=== PATIENT | female | born 1945 | race Caucasian/White ===

== ENCOUNTER 2016-08-22 10:47 | Outpatient (CLI) | payer OTHER | END 2016-08-22 10:50 | LOC: LAB 10:47 | PROVIDERS: ATTEND Family Medicine | DX: R73.9 Hyperglycemia, unspecified (principal) | CPT/HCPCS: 36415; 83036 ==

== ENCOUNTER 2016-08-31 09:38 | Outpatient (CLI) | payer OTHER | END 2016-08-31 09:40 | LOC: RAD 09:38 | PROVIDERS: ATTEND Family Medicine | DX: Z13.820 Encounter for screening for osteoporosis (principal) | CPT/HCPCS: 77080 ==

== ENCOUNTER 2016-11-16 09:57 | Outpatient (CLI) | payer OTHER ==
--- NOTE | 2016-11-17 06:55 | Diagnostic Imaging Report ---
HARLEY WISE~ [facility] [address] [address] [facility] [address] [address] ~ ~ ~ ~ Report Submission Date: Nov 16, 2016 11:38:01 AM CDT Patient ~ Study Name: VALENTIN CROCKER ~ Date: Nov 16, 2016 10:25:26 AM CDT ~ Modality Type: CR Gender: F ~ Description: PELVIS : 47 ~ Institution: [facility] Physician: HARLEY WISE ~ ~ ~ ~ Examination: Plain film hip History: Hip discomfort Comparison exams: None provided Findings: 2 views of the hip demonstrate normal cortical margins. No fracture no dislocation. Mild superior acetabular spurring. No soft tissue abnormality. Impression: Mild acetabular spurring. No acute osseous abnormality. ~ Electronically signed on Nov 16, 2016 11:38:01 AM CDT by: Tristan GUALLPA
== END 2016-11-16 10:00 ==
LOC: RAD 09:57
PROVIDERS: ATTEND Physician Assistant
DX: R10.31 Right lower quadrant pain (principal); R10.30 Lower abdominal pain, unspecified
CPT/HCPCS: 73502

== ENCOUNTER 2017-07-10 11:00 | Outpatient (CLI) | payer OTHER ==
--- NOTE | 2017-07-10 11:37 | Diagnostic Imaging Report ---
CHAPIN ROGERS [facility] [address] [facility] [address] [address] Report Submission Date: Jul 10, 2017 11:36:01 AM PAIN MANAGEMENT NURSE Patient Study Name: VALENTIN CROCKER Date: Jul 10, 2017 11:04:57 AM PAIN MANAGEMENT NURSE Modality Type: DX Gender: F Description: CHEST : 47 Institution: [facility] Physician: CHAPIN ROGERS Examination: PA and lateral chest. History: Evaluate lung villegas. COUGH (Hx) Comparison exam: None provided. Findings: PA lateral chest demonstrate a normal cardiac and mediastinal silhouette. Tortuous aorta. No focal infiltrate. No blunting of the costophrenic margins. Articular degenerative changes. Impression: No acute pulmonary process. Electronically signed on Jul 10, 2017 11:36:01 AM PAIN MANAGEMENT NURSE by: Tristan GUALLPA
== END 2017-07-10 11:02 ==
LOC: RAD 11:00
PROVIDERS: ATTEND Family Medicine
DX: R05 Cough (principal)
CPT/HCPCS: 71046

== ENCOUNTER 2017-07-26 08:24 | Outpatient (CLI) | payer OTHER ==
[2017-07-26 08:43] LABS: BASOPHILS % 0.8 (0.0-1.5); EOSINOPHILS % 3.2 % (0.0-6.8); MEAN CORPUSCULAR HEMOGLOBIN 29.2 pg (28.0-34.0); MEAN CORPUSCULAR VOLUME 88.3 fl (80.0-100.0); MONOCYTES % 3.9 % (0.0-11.0); NEUTROPHILS # 5.1 # k/uL (1.4-7.7)
[2017-07-26 09:07] LABS: eGFR (African) > 60; eGFR (Non-African) > 60
== END 2017-07-26 09:28 ==
LOC: LAB 08:24
PROVIDERS: ATTEND Family Medicine
DX: D64.9 Anemia, unspecified (principal); E53.8 Deficiency of other specified B group vitamins; I10 Essential (primary) hypertension
CPT/HCPCS: 36415; 80048; 82607; 85025

== ENCOUNTER 2017-09-25 15:37 | Outpatient (CLI) | payer OTHER | END 2017-09-25 15:40 | LOC: LABRHC 15:37 | PROVIDERS: ATTEND Family Medicine | DX: L72.3 Sebaceous cyst (principal) | CPT/HCPCS: 87070 ==

== ENCOUNTER 2018-05-01 16:35 | Outpatient (CLI) | payer OTHER ==
--- NOTE | 2018-05-01 17:04 | Diagnostic Imaging Report ---
CHAPIN ROGERS [facility] [address] [facility] [address] Report Submission Date: May 01, 2018 5:04:15 PM OUTSIDE CUTTER Patient Study Name: VALENTIN CROCKER Date: May 01, 2018 4:38:11 PM OUTSIDE CUTTER Modality Type: DX Gender: F Description: LOWER EXTREMITY : 47 Institution: [facility] Physician: CHAPIN ROGERS Right foot, three views History: Fall 2 weeks prior with foot pain. Findings: The osseous structures are intact without evidence of acute fracture. There is mild hallux valgus with mild degenerative change of the 1st metatarsophalangeal joint space. Plantar and dorsal calcaneal enthesophytes are present. Impression: 1. No acute osseous abnormality. 2. Mild hallux valgus. Electronically signed on May 01, 2018 5:04:15 PM OUTSIDE CUTTER by: Adolfo GUALLPA
== END 2018-05-01 16:36 ==
LOC: RAD 16:35
PROVIDERS: ATTEND Family Medicine
DX: M20.11 Hallux valgus (acquired), right foot (principal); M79.671 Pain in right foot
CPT/HCPCS: 73630

== ENCOUNTER 2018-06-26 10:55 | Emergency (ER) | payer SELFPAY ==
--- NOTE | 2018-06-26 11:07 | ED Physician Documentation ---
Fall - HISTORIAN Historian: patient - HPI Stated Complaint: fall and right sided arm /hip pain Chief Complaint: Fall Onset: just prior to arrival Where: other (here at hospital) Context: tripped r: mild Associated Symptoms:: no loss of consciousness Location of Pain/Injury: other (right shoulder and hip ) Injury to Right Extremity: shoulder, hip Injury to Left Extremity: none Further Comments: yes (She states she tripped on a rug fell hitting her right shoulder then hip and sliding scratching her forehead. No LOC she states she really didnt hit her head. She has pain in her right shoulder but knows she has a partial rotator cuff tear. She also has some pain in right hip with flexion. She is able to walk normally. She did take Tylenol before coming to ER and she feels her pain is "sleepy" when asked to scale the pain) - ROS CONST: no problems NEURO: denies: dizziness MS/SKIN/LYMPH: neck pain (Chronic ). denies: weakness, numbness, back pain, leg swelling EYES/ENT: denies: problems with vision CVS/RESP: denies: chest pain, shortness of breath, palpitations GI/: denies: nausea, vomiting - PAST HX Past History: other (HTN, neck and back chronic, ) Allergies/Adverse Reactions: Allergies Allergy/AdvReac Type Severity Reaction Status Date / Time codeine Allergy Verified 06/26/18 11:16 morphine Allergy Verified 06/26/18 11:16 Home Medications: Ambulatory Orders Medication Instructions Recorded Aspirin [Lalito] 81 mg PO DAILY 06/26/18 - SOCIAL HX Smoking History: non-smoker Alcohol Use: none Drug Use: none - FAMILY HX Family History: none - REVIEWED ASSESSMENTS Nursing Assessment Reviewed: Yes Vitals Reviewed: Yes Progress - Progress Progress: 1300: denies pain - dressed states she has to be at work at 1330. Results back. Explained she is aware and agreeable to plan. DG ED Results Lab/Radiology - Radiology Radiology Impressions: Right hip History: Status post fall AP pelvis and frogleg lateral projection of the right hip demonstrate mild superolateral migration of the femoral head consistent with mild osteoarthritis. There is no evidence for acute fracture or dislocation. SI joints are intact. Impression: Mild osteoarthritis of the right hip. No evidence for acute fracture or dislocation. Electronically signed on Jun 26, 2018 12:51:04 PM MEDIEVAL ENGLISH LITERATURE PROFESSOR by: Jesika Hay Examination: Portable chest History: Evaluate lungs. CHEST COUGH Comparison exam: Comparison exam: None provided. Findings: Single view of the chest demonstrates a normal cardiac and mediastinal silhouette. Tortuous aorta. Lung villegas without focal infiltrate. No blunting of the costophrenic margins. Articular degenerative changes. Impression: No acute pulmonary process. Electronically signed on Jun 26, 2018 1:00:09 PM MEDIEVAL ENGLISH LITERATURE PROFESSOR by: Tristan Deshpande Examination: Plain film right shoulder History: Fall Comparison exams: None provided Findings: 3 views of the right shoulder demonstrates osteopenia. Articular degenerative changes. No evidence for fracture or dislocation. No soft tissue abnormality. Impression: Osteopenia and articular degenerative changes. No acute appearing cortical abnormality. Electronically signed on Jun 26, 2018 12:50:08 PM MEDIEVAL ENGLISH LITERATURE PROFESSOR by: Tristan Deshpande Examination: Plain film right shoulder History: Fall Comparison exams: None provided Findings: 3 views of the right shoulder demonstrates osteopenia. Articular d egenerative changes. No evidence for fracture or dislocation. No soft tissue abnormality. Impression: Osteopenia and articular degenerative changes. No acute appearing cortical abnormality. Electronically signed on Jun 26, 2018 12:49:58 PM MEDIEVAL ENGLISH LITERATURE PROFESSOR by: Tristan Deshpande Examination: Plain film right shoulder History: Fall Comparison exams: None provided Findings: 3 views of the right shoulder demonstrates osteopenia. Articular degenerative changes. No evidence for fracture or dislocation. No soft tissue abnormality. Impression: Osteopenia and articular degenerative changes. No acute appearing cortical abnormality. Electronically signed on Jun 26, 2018 12:49:46 PM MEDIEVAL ENGLISH LITERATURE PROFESSOR by: Tristan Deshpande Fall Physical Exam - Physical Exam General Appearance: no acute distress, alert Head: non-tender (mild abrasion on right forehead ) Neck: limited ROM (chronic pain and "metal all throughout" Denies increased pain or injury ) Eye: HANDY ENT: nml external inspection Resp/CVS: chest non-tender, breath sounds nml, no resp. distress, heart sounds nml, other (mild pain with palpation right scapula ) Abdomen: soft, no distension, non-tender Neuro: oriented x3, CN's nml as tested, sensation nml, motor nml, mood/affect nml, manager cancer nml, reflexes nml Skin: color nml Back: normal inspection Extremities: atraumatic, pelvis stable, other (Hip with pain to palpation . No change in ROM. No noted rotation - normal gait - pulses + cap refill + sensation +) Joint: joints nml, nml ROM, Nml gait/weight bearing, painful (right shoulder and decreased ROM (she reports partial rotator cuff tear) Pulses + Sensation + Cap refill + ) - Bruna Coma Score Eyes Open: Spontaneous Speech: Oriented Motor: Obeys Commands Discharge Clincal Impression: Fall Qualifiers: Encounter type: initial encounter Qualified Code(s): W19.XXXA - Unspecified fall, initial encounter Referrals: Lee Segura MD [Primary Care Provider] - 2 Days Comments: 1. Continue home meds 2. OTC meds as needed for pain as directed 3. Follow up with PCP in 2-4 days 4. Return to ER for any concerns Condition: Stable Disposition: 01 HOME, SELF-CARE Decision to Admit: NO Date of Decison to Admit: 06/26/18 Decision Time: 13:00
[2018-06-26 11:15] VITALS: BP 164/68
--- NOTE | 2018-06-26 20:48 | Diagnostic Imaging Report ---
LEONORA LUNA [facility] [address] [facility] [address] [address] Report Submission Date: Jun 26, 2018 1:00:09 PM GAS DISTRIBUTION AND EMERGENCY CLERK Patient Study Name: VALENTIN CROCKER Date: Jun 26, 2018 11:30:54 AM GAS DISTRIBUTION AND EMERGENCY CLERK Modality Type: DX Gender: F Description: CHEST 1VIEW : 47 Institution: [facility] Physician: LEONORA LUNA Examination: Portable chest History: Evaluate lungs. CHEST COUGH Comparison exam: Comparison exam: None provided. Findings: Single view of the chest demonstrates a normal cardiac and mediastinal silhouette. Tortuous aorta. Lung villegas without focal infiltrate. No blunting of the costophrenic margins. Articular degenerative changes. Impression: No acute pulmonary process. Electronically signed on Jun 26, 2018 1:00:09 PM GAS DISTRIBUTION AND EMERGENCY CLERK by: Tristan GUALLPA
--- NOTE | 2018-06-26 20:49 | Diagnostic Imaging Report ---
LEONORA LUNA [facility] [address] [facility].[address] [address] Report Submission Date: Jun 26, 2018 12:50:08 PM BLAST FURNACE SUPERVISOR Patient Study Name: VALENTIN CROCKER Date: Jun 26, 2018 11:35:31 AM BLAST FURNACE SUPERVISOR Modality Type: DX Gender: F Description: SHOULDER 2 VIEWS OR MORE : 47 Institution: [facility] Physician: LEONORA LUNA Examination: Plain film right shoulder History: Fall Comparison exams: None provided Findings: 3 views of the right shoulder demonstrates osteopenia. Articular degenerative changes. No evidence for fracture or dislocation. No soft tissue abnormality. Impression: Osteopenia and articular degenerative changes. No acute appearing cortical abnormality. Electronically signed on Jun 26, 2018 12:50:08 PM BLAST FURNACE SUPERVISOR by: Tristan GUALLPA
--- NOTE | 2018-06-26 20:50 | Diagnostic Imaging Report ---
LEONORA LUNA [facility] [address] [facility].[address] [address] Report Submission Date: Jun 26, 2018 12:51:04 PM FRONT END MECHANIC Patient Study Name: VALENTIN CROCKER Date: Jun 26, 2018 11:26:37 AM FRONT END MECHANIC Modality Type: DX Gender: F Description: RT HIP 2VIEW COMPLETE : 47 Institution: [facility] Physician: LEONORA LUNA Right hip History: Status post fall AP pelvis and frogleg lateral projection of the right hip demonstrate mild superolateral migration of the femoral head consistent with mild osteoarthritis. There is no evidence for acute fracture or dislocation. SI joints are intact. Impression: Mild osteoarthritis of the right hip. No evidence for acute fracture or dislocation. Electronically signed on Jun 26, 2018 12:51:04 PM FRONT END MECHANIC by: Jesika GUALLPA
== END 2018-06-26 12:50 | disposition home or self-care (01) ==
LOC: ED 10:55
DX: M25.511 Pain in right shoulder (principal); M25.551 Pain in right hip; S00.81XA Abrasion of other part of head, initial encounter; W01.0XXA Fall on same level from slipping, tripping and stumbling without subsequent striking against object, initial encounter; Y93.01 Activity, walking, marching and hiking; Y92.239 Unspecified place in hospital as the place of occurrence of the external cause
CPT/HCPCS: 71045; 73030; 73502; 99283; 99285

== ENCOUNTER 2019-01-31 11:23 | Outpatient (CLI) | payer OTHER ==
[2019-01-31 12:12] LABS: eGFR (Non-African) > 60
--- NOTE | 2019-02-07 09:25 | Diagnostic Imaging Report ---
CHAPIN ROGERS [facility] [address] [facility] [address] [address] Report Submission Date: Jan 31, 2019 11:40:46 AM CDT Patient Study Name: VALENTIN CROCKER Date: Jan 31, 2019 11:22:27 AM CDT Modality Type: DX Gender: F Description: CHEST 2VIEW : 47 Institution: [facility] Physician: CHAPIN ROGERS Chest 2 views Indication: Cough Findings: 2 views of the chest compared to prior from 06/26/18 shows mild cardiomegaly. There is accentuated central bronchovascular markings. No consolidation, pleural effusion or pneumothorax is demonstrated. Impression: Cardiomegaly Electronically signed on Jan 31, 2019 11:40:46 AM CDT by: Darnell GUALLPA
== END 2019-01-31 11:25 ==
LOC: LAB 11:23
PROVIDERS: ATTEND Family Medicine
DX: R05 Cough (principal)
CPT/HCPCS: 36415; 71046; 80053; 85027